=== PATIENT | female | born 1980 | race Two or more races ===

== ENCOUNTER → 2021-02-06 | Emergency (ER) | payer BC ==
[~2021-02-06] VITALS: Ht 167.6 cm; Wt 82.6 kg
[~2021-02-06] MED LIST: PROPRANOLOL HCL10 MG; PROSCAR5 MG; RITALIN LA30 MG PO
== END | disposition left against medical advice (07) ==
LOC: ER 17:24
DX: N39.0 Urinary tract infection, site not specified (principal); R31.0 Gross hematuria; N20.0 Calculus of kidney